=== PATIENT | male | born 1995 ===

== ENCOUNTER → 2023-09-15 | Day surgery (SDC) | payer OTHER ==
[2023-09-12 12:04] LABS: HEMATOCRIT 44.3 % (39.0-48.0); HEMOGLOBIN 14.5 g/dL (13-16.00); MEAN CELL VOLUME 80.6 fL (80.0-100.00); MEAN CORPUSCULAR HEMOGLOBIN 26.3 pg (27.00-32.0); MEAN CORPUSCULAR HGB CONC 32.7 g/dl (32.0-36.0); PLATELET COUNT 256 K/uL (150-450); RED CELL DISTRIBUTION WIDTH 13.1 % (11.5-14.5)
[2023-09-12 12:06] LABS: PH,URINE 7.5 (5.0-8.0); URINE APPEARANCE Clear; URINE BILIRRUBIN Negative (NEGATIVE); URINE BLOOD Negative; URINE COLOR Yellow; URINE GLUCOSE Negative (NEGATIVE); URINE LEUKOCYTE Negative; URINE NITRATE Negative; URINE PROTEIN Negative (NEGATIVE); URINE RBC 2.5 uL (0.0-20.8); URINE WBC 2.1 uL (0.0-23.2)
[2023-09-12 12:08] LABS: URINE BACTERIA 2.5 uL (0.0-1933); URINE EPITHELIAL CELLS 0.7 uL (0.0-38.8)
[2023-09-12 12:46] LABS: BILIRUBIN TOTAL 1.02 mg/dL (0.3-1.2); CALCIUM 9.1 mg/dL (8.5-10.1); CREATININE SERUM 0.95 mg/dL (0.70-1.30); GFR 96.59; GLOBULINA 3.8 G/DL (2.4-3.5); POTASSIUM 4.43 mEq/L (3.5-5.1); TOTAL PROTEIN 7.8 gm/dL (6.4-8.2)
[2023-09-12 12:52] LABS: INR 1.02; PARTIAL THROMBOPLASTIN TIME 32.8 SECONDS (22.0-34.0); PROTHROMBIN TIME 10.7 SECONDS (9.0-11.5)
[~2023-09-15] VITALS: Ht 175.3 cm; Wt 79.4 kg
[~2023-09-15] MED LIST: AMOX-CLAV 875-1 EACH PO; OXYC1TAB9 PO
== END | disposition home or self-care (01) ==
LOC: ADM 09-11 09:15 → CIR.AMB 09:15
PROVIDERS: ATTEND Surgery
DX: L05.01 Pilonidal cyst with abscess (principal); I10 Essential (primary) hypertension; Z20.822 Contact with and (suspected) exposure to COVID-19